=== PATIENT | female | born 1980 | race Caucasian/White ===

== ENCOUNTER 2021-11-08 06:34 | Inpatient (IN) ==
[2021-10-30 15:25] LABS: Basophils % 0.8 % (0.0-0.8); Eosinophils # 0.2 10*3/uL (0.0-0.87); Eosinophils % 3.8 % (0.00-10.9); Hematocrit 41.8 VOL% (35.7-47.0); Hemoglobin 13.5 GM/DL (12.0-16.0); Immature Granulocytes % 0.3 %; Immature Granulocytes Absolute 0.01 #; Lymphocytes # 1.3 10*3/uL (1.4-4.0); Lymphocytes % 32.6 % (21.3-54.2); Mean Corpuscular HGB Conc 32.3 GM/DL (32-36); Mean Platelet Volume 9.8 FL (9.6-12.0); Monocytes % 8.9 % (1.7-12.7); Neutrophils % 53.6 % (38.7-73.9); Platelet Count 318 T/CUMM (130-400); Red Blood Count 4.75 MC/CUMM (3.8-5.5); Red Cell Distribution Width 13.4 % (9.3-17.3); White Blood Count 3.9 T/CUMM (4-12)
[2021-10-30 15:37] LABS: Albumin 3.3 G/DL (3.4-5.0); Bilirubin,Total 0.6 MG/DL (0.20-1.00); Calcium 8.8 MG/DL (8.5-10.1); Osmolality,Calculated 281.3 MOS/KG (273-304); Total Protein 6.8 G/DL (6.4-8.2)
[~2021-11-08 06:34] MED LIST: cefTRIAXone 1,000 MG in SODIUM CHLORIDE 0.9% 100 ML IV ONE
[2021-11-08] MEDS ORDERED: ALBUTEROL 2.5 MG/3 ML NEB RESP TX ONE (07:02)
[2021-11-08] MEDS ORDERED: DIAZEPAM 5 MG TABLET PO ONE (07:02)
[2021-11-08] MEDS ORDERED: FAMOTIDINE 20 MG TABLET PO ONE (07:02)
[2021-11-08] MEDS: LACTATED RINGERS 1,000 ML IV SCH ×2 (08:10→11:00)
[2021-11-08] MEDS ORDERED: cefTRIAXone 1,000 MG VIAL ONE (08:23)
[2021-11-08 08:24] LABS: Barbiturates Screen,Urine Negative (Negative); Benzodiazepines Screen,Urine Negative (Negative); Cannabinoid Screen,Urine Negative (Negative); Opiate Screen,Urine Negative (Negative); Phencyclidine Screen,Urine Negative (Negative)
[2021-11-08] MEDS ORDERED: fentaNYL 100 MCG/2 ML VIAL ONE (10:08)
[2021-11-08] MEDS ORDERED: propofoL 200 MG/20 ML VIAL IV ONE (10:08)
[2021-11-08] MEDS ORDERED: MIDAZOLAM 2 MG/2 ML VIAL ONE (10:08)
[2021-11-08] MEDS ORDERED: LIDOCAINE 2% 5 ML VIAL ONE (10:08)
[2021-11-08] MEDS ORDERED: SEVOFLURANE 1 UNIT/15 MINUTE INH ONE ×4 (10:08→10:56)
[2021-11-08] MEDS ORDERED: LACTATED RINGERS 1,000 ML IV ONE (10:35)
[2021-11-08] MEDS ORDERED: PROMETHAZINE 25 MG/1 ML VIAL IM PRN (11:05)
[2021-11-08] MEDS ORDERED: KETOROLAC 30 MG/1 ML VIAL ONE (11:10)
[2021-11-08] MEDS ORDERED: INFLUENZA VIRUS VACCINE 0.5 ML SYRINGE IM ONE (12:20)
[2021-11-08] MEDS: MEROPENEM 500 MG in SODIUM CHLORIDE 0.9% 100 ML IV SCH ×2 (12:34→20:15)
[2021-11-08] MEDS: ONDANSETRON 4 MG/2 ML VIAL IV PRN ×2 (12:35→23:26)
[2021-11-08] MEDS: ACETAMINOPHEN 325 MG TABLET PO SCH ×3 (12:35→23:22)
[2021-11-08] MEDS: SODIUM CHLORIDE 0.9% 1,000 ML IV SCH ×2 (12:36→23:22)
[2021-11-08] MEDS: KETOROLAC 30 MG/1 ML VIAL IV PRN (13:45)
[2021-11-08] MEDS: TAMSULOSIN 0.4 MG CAPSULE PO SCH (20:15)
[2021-11-09] MEDS: KETOROLAC 30 MG/1 ML VIAL IV PRN ×4 (01:49→23:42)
[2021-11-09] MEDS: MEROPENEM 500 MG in SODIUM CHLORIDE 0.9% 100 ML IV SCH ×3 (04:30→20:14)
[2021-11-09] MEDS: ACETAMINOPHEN 325 MG TABLET PO SCH ×4 (04:31→23:42)
[2021-11-09 06:52] LABS: Basophils % 0.5 % (0.0-0.8); Eosinophils # 0.1 10*3/uL (0.0-0.87); Eosinophils % 2.5 % (0.00-10.9); Hematocrit 36.8 VOL% (35.7-47.0); Hemoglobin 11.7 GM/DL (12.0-16.0); Immature Granulocytes % 0.4 %; Immature Granulocytes Absolute 0.02 #; Lymphocytes # 0.3 10*3/uL (1.4-4.0); Lymphocytes % 6.1 % (21.3-54.2); Mean Corpuscular HGB Conc 31.8 GM/DL (32-36); Mean Corpuscular Volume 90.6 FL (87-102); Mean Platelet Volume 9.8 FL (9.6-12.0); Monocytes % 4.8 % (1.7-12.7); Neutrophils % 85.7 % (38.7-73.9); Platelet Count 167 T/CUMM (130-400); Red Blood Count 4.06 MC/CUMM (3.8-5.5); Red Cell Distribution Width 13.6 % (9.3-17.3); White Blood Count 5.6 T/CUMM (4-12)
[2021-11-09 07:14] LABS: Calcium 7.9 MG/DL (8.5-10.1); Osmolality,Calculated 276.5 MOS/KG (273-304); Potassium 3.6 MMOL/L (3.5-5.1)
[2021-11-09] MEDS: SODIUM CHLORIDE 0.9% 1,000 ML IV SCH ×3 (10:17→20:19)
[2021-11-09] MEDS: TAMSULOSIN 0.4 MG CAPSULE PO SCH (20:14)
[2021-11-10] MEDS: MEROPENEM 500 MG in SODIUM CHLORIDE 0.9% 100 ML IV SCH ×3 (04:45→21:42)
[2021-11-10] MEDS: ACETAMINOPHEN 325 MG TABLET PO SCH ×4 (04:46→22:51)
[2021-11-10] MEDS: KETOROLAC 30 MG/1 ML VIAL IV PRN ×3 (06:10→22:51)
[2021-11-10] MEDS: SODIUM CHLORIDE 0.9% 1,000 ML IV SCH ×2 (09:05→14:45)
[2021-11-10] MEDS: TAMSULOSIN 0.4 MG CAPSULE PO SCH (21:43)
[2021-11-11] MEDS: ACETAMINOPHEN 325 MG TABLET PO SCH (04:52)
[2021-11-11] MEDS: SODIUM CHLORIDE 0.9% 1,000 ML IV SCH ×2 (04:57→05:01)
[2021-11-11] MEDS: MEROPENEM 500 MG in SODIUM CHLORIDE 0.9% 100 ML IV SCH (05:10)
[2021-11-11 05:54] LABS: Basophils % 0.4 % (0.0-0.8); Eosinophils # 0.1 10*3/uL (0.0-0.87); Eosinophils % 3.4 % (0.00-10.9); Hemoglobin 11.1 GM/DL (12.0-16.0); Immature Granulocytes % 0.4 %; Immature Granulocytes Absolute 0.01 #; Lymphocytes # 0.8 10*3/uL (1.4-4.0); Lymphocytes % 30.1 % (21.3-54.2); Mean Corpuscular HGB Conc 31.7 GM/DL (32-36); Mean Corpuscular Volume 90.4 FL (87-102); Mean Platelet Volume 10.2 FL (9.6-12.0); Monocytes % 7.5 % (1.7-12.7); Neutrophils % 58.2 % (38.7-73.9); Platelet Count 159 T/CUMM (130-400); Red Blood Count 3.87 MC/CUMM (3.8-5.5); Red Cell Distribution Width 13.2 % (9.3-17.3); White Blood Count 2.7 T/CUMM (4-12)
[2021-11-11 06:09] LABS: Calcium 8.2 MG/DL (8.5-10.1); Osmolality,Calculated 282.1 MOS/KG (273-304); Potassium 3.1 MMOL/L (3.5-5.1)
[2021-11-11 07:28] VITALS: BP 115/71
[2021-11-12 11:46] LABS: Stone Analysis Interpretation SEE COMMENTS; Stone Source Kidney
== END 2021-11-11 08:31 | disposition home or self-care (01) | DRG 446 ==
LOC: N.OR 06:34 → N.SDSINP 06:36 → N.3E 12:00
PROVIDERS: ADMIT Surgery; ATTEND Surgery